=== PATIENT | male | born 1990 | race Caucasian/White ===

== ENCOUNTER 2016-03-24 12:51 | Emergency (ER) | payer OTHER ==
[~2016-03-24 12:51] MED LIST: BACT800T5 PO; HYDR-4274 PO; LATU1TAB PO; MIRT15TA3 PO; NORC5TAB PO; PERCOCET PO; REME15TA PO; VIST50CA PO
--- NOTE | 2016-03-24 14:40 | EDDOCDS ---
Nurse's Notes [facility] Name: Erik Fernandez Age: 26 yrs Sex: Male : 1990 Arrival Date: 03/24/2016 Time: 12:51 Bed TR5 Private MD: MDPhillip SCHULTZ Diagnosis: Postprocedural pelvic peritoneal adhesions Presentation: 03/24 13:01 Presenting complaint: Patient states: he has had right lower abdominal pain for 2 weeks kcs - getting worse - thinks there may be a lump there. Adult Sepsis Screening: The patient does not have new or worsening altered mentation. Patient's respiratory rate is less than 22. Systolic blood pressure is greater than 100. Patient has a qSOFA score of 0- Negative Sepsis Screen. Suicide/Homicide risk assessment- the patient denies having any suicidal and/or homicidal ideations and does not present with any other emotional, behavioral or mental health complaints. 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 Transition of care: patient was not received from another setting of care. 13:01 Acuity: BRIANNA Level 3 kcs 13:01 Method Of Arrival: Walkin/Carried/Asstd kcs Triage Assessment: 13:02 General: Appears comfortable, well developed, well nourished, well groomed, Behavior is kcs cooperative, pleasant. Pain: Location: RLQ abdomen Pain currently is 5 out of 10 on a pain scale. HIV screening NA for this visit active duty . Neurological: Level of Consciousness is awake, alert. Respiratory: Airway is patent Respiratory effort is even, unlabored, Respiratory pattern is regular, symmetrical. GI: Reports nausea, Denies diarrhea, vomiting. Derm: Skin is intact, is healthy with good turgor, Skin is dry, Skin is normal. Historical: - Allergies: No known drug Allergies; - Home Meds: 1. Zomig 5 mg oral tab 1 tab as needed for pain 2. paroxetine HCl 10 mg Oral tab 1 tab once daily at dinner time (Last dose: 03/23/2016) 3. prazosin 1 mg Oral cap 1 cap daily at bedtime. - PMHx: hernias; hydrocele; Hypertension; wisdom teeth; - PSHx: Hernia repair- Right inguinal; [place] Teeth; - Social history: Smoking status: Patient states former smoker of tobacco. No barriers to communication noted, The patient speaks fluent Montenegrin. - Family history: Not pertinent. - : The pt / caregiver states he / she is not on anticoagulants. Home medication list is obtained from the patient, [employer] import data. - Exposure Risk Screening:: None identified. Screenin:31 Screening information is obtained from the patient. Fall risk: No risks identified. bcj Assistance ADL's: requires no assistance with activities of daily living. Abuse/DV Screen: The patient / caregiver reports he/she is: not in a situation that causes fear, pain or injury. Nutritional screening: No deficits noted. Advance Directives: Currently, there is no health care proxy. home support is adequate. Assessment: 14:31 GI: Bowel sounds present X 4 quads. Abd is soft and non tender X 4 quads. j Vital Signs: 12:54 BP 135 / 69; Pulse 76; Resp 18 S; Temp 97.0(O); Pulse Ox 100% on R/A; Weight 65.77 kg gr2 (R); Height 71 in. (180.34 cm) (R); Pain 8/10; 14:18 BP 137 / 76; Pulse 77; Resp 18; Temp 98.3(TE); Pulse Ox 99% on R/A; Pain 4/10; ar3 12:54 Body Mass Index 20.22 (65.77 kg, 180.34 cm) gr2 Vitals: 12:54 Log In Time: March 24, 2016 at 12:54. gr2 ED Course: 12:53 Patient visited by Nina Jang. gr2 12:53 [facility] is Private Physician. gr2 12:53 Patient moved to Waiting gr2 12:56 Patient visited by Nina Jang. gr2 12:56 Patient moved to Pre RCE gr2 13:01 Triage Initiated kcs 13:45 Patient moved to Triage 2 mb9 13:46 Patient moved to Pre RCE ar3 13:49 Patient moved to Triage 2 mb9 13:50 Erasmo Ramirez PA is PHCP. btw 13:50 Whit Huston MD is Attending Physician. btw 13:50 Patient visited by Erasmo Ramirez PA. btw 13:56 [facility] is Referral Physician. btw 14:18 Patient visited by Isabel Smith PCA. ar3 14:30 Patient moved to TR5 ar3 14:31 No apparent distress. Resting quietly. Awaiting disposition. [facility] 14:31 The patient / caregiver is instructed regarding the plan of care and ED course. [facility] 14:31 No IV's were initiated during this patient's visit. No procedures done that require bcj assistance. 14:33 Patient visited by Shaun Francois, JOVANY. j Order Results: There are currently no results for this order. Outcome: 13:57 Discharge ordered by Provider. [facility] 14:31 Discharge Assessment: patient administered narcotics - no. The following High Risk [facility] Discharge criteria are identified: None. Discharged to home ambulatory. Condition: stable. Discharge instructions given to patient, Instructed on discharge instructions, follow up and referral plans. No special radiology studies were completed. Property :Personal belongings accompany Pt. 14:39 Patient left the ED. [facility] Signatures: Johanna Del Rosario RN RN [facility] Shaun Francois, RN RN [facility] Isabel Smith PCA GAS MAIN FITTER HELPER ar3 Erasmo Ramirez PA PA bt Nina Jang 2 Denzel SantillanRN RN mb9 YARIEL
--- NOTE | 2016-03-24 14:40 | EDDOCDS ---
Physician Documentation [facility] Name: Erik Fernandez Age: 26 yrs Sex: Male : 1990 Arrival Date: 03/24/2016 Time: 12:51 Bed TR5 Private MD: [facility] [place] Disposition: 03/24/16 13:57 Discharged to Home/Self Care. Impression: Postprocedural pelvic peritoneal adhesions. - Condition is Stable. - Discharge Instructions: Adhesions. - Medication Reconciliation, Local Pharmacy Hours form. - Follow up: [facility]; When: 1 - 2 days; Reason: Further diagnostic work-up, Recheck today's complaints, Continuance of care. - Problem is new. - Symptoms are unchanged. Historical: - Allergies: No known drug Allergies; - Home Meds: 1. Zomig 5 mg oral tab 1 tab as needed for pain 2. paroxetine HCl 10 mg Oral tab 1 tab once daily at dinner time (Last dose: 03/23/2016) 3. prazosin 1 mg Oral cap 1 cap daily at bedtime. - PMHx: hernias; hydrocele; Hypertension; wisdom teeth; - PSHx: Hernia repair- Right inguinal; [place] Teeth; - Social history: Smoking status: Patient states former smoker of tobacco. No barriers to communication noted, The patient speaks fluent Ecuadorean. - Family history: Not pertinent. - : The pt / caregiver states he / she is not on anticoagulants. Home medication list is obtained from the patient, [employer] import data. - Exposure Risk Screening:: None identified. Vital Signs: 03/24 12:54 BP 135 / 69; Pulse 76; Resp 18 S; Temp 97.0(O); Pulse Ox 100% on R/A; Weight 65.77 kg / gr2 145 lbs (R); Height 71 in. (180.34 cm) (R); Pain 8/10; 14:18 BP 137 / 76; Pulse 77; Resp 18; Temp 98.3(TE); Pulse Ox 99% on R/A; Pain 4/10; ar3 12:54 Body Mass Index 20.22 (65.77 kg, 180.34 cm) gr2 Signatures: Johanna Del Rosario RN RN kcs Johnson, Bruce, RN RN bcj Wolfenden, Brandon, PA PA btw Denzel Santillan,RN RN mb9 MTDD
--- NOTE | 2016-03-26 15:39 | EDDOCDS ---
Physician Documentation [facility] Name: Erik Fernandez Age: 26 yrs Sex: Male : 1990 Arrival Date: 03/24/2016 Time: 12:51 Bed TR5 Private MD: [facility] [place] Disposition: 03/24/16 13:57 Discharged to Home/Self Care. Impression: Postprocedural pelvic peritoneal adhesions. - Condition is Stable. - Discharge Instructions: Adhesions. - Medication Reconciliation, Local Pharmacy Hours form. - Follow up: [facility]; When: 1 - 2 days; Reason: Further diagnostic work-up, Recheck today's complaints, Continuance of care. - Problem is new. - Symptoms are unchanged. Historical: - Allergies: No known drug Allergies; - Home Meds: 1. Zomig 5 mg oral tab 1 tab as needed for pain 2. paroxetine HCl 10 mg Oral tab 1 tab once daily at dinner time (Last dose: 03/23/2016) 3. prazosin 1 mg Oral cap 1 cap daily at bedtime. - PMHx: hernias; hydrocele; Hypertension; wisdom teeth; - PSHx: Hernia repair- Right inguinal; [place] Teeth; - Social history: Smoking status: Patient states former smoker of tobacco. No barriers to communication noted, The patient speaks fluent Botswanan. - Family history: Not pertinent. - : The pt / caregiver states he / she is not on anticoagulants. Home medication list is obtained from the patient, [employer] import data. - Exposure Risk Screening:: None identified. Vital Signs: 03/24 12:54 BP 135 / 69; Pulse 76; Resp 18 S; Temp 97.0(O); Pulse Ox 100% on R/A; Weight 65.77 kg / gr2 145 lbs (R); Height 71 in. (180.34 cm) (R); Pain 8/10; 14:18 BP 137 / 76; Pulse 77; Resp 18; Temp 98.3(TE); Pulse Ox 99% on R/A; Pain 4/10; ar3 12:54 Body Mass Index 20.22 (65.77 kg, 180.34 cm) gr2 MDM: 03/25 12:05 T-Sheet-- Draft Copy was scanned into [employer] and attached to record. gb Signatures: Johanna Del Rosario, RN RN Shaun Noonan RN RN bcj Iraida Moulton, Reg Reg gb Erasmo Ramirez PA PA btw Denzel SantillanRN RN mb9 The chart was reviewed and I authenticate all verbal orders and agree with the evaluation and treatment provided.Attachments: 12:05 T-Sheet-- Draft Copy gb Chart Complete MTDD
--- NOTE | 2016-03-26 15:39 | EDDOCDS ---
Physician Documentation [facility] Name: Erik Fernandez Age: 26 yrs Sex: Male : 1990 Arrival Date: 03/24/2016 Time: 12:51 Bed TR5 Private MD: [facility] [place] Disposition: 03/24/16 13:57 Discharged to Home/Self Care. Impression: Postprocedural pelvic peritoneal adhesions. - Condition is Stable. - Discharge Instructions: Adhesions. - Medication Reconciliation, Local Pharmacy Hours form. - Follow up: [facility]; When: 1 - 2 days; Reason: Further diagnostic work-up, Recheck today's complaints, Continuance of care. - Problem is new. - Symptoms are unchanged. Historical: - Allergies: No known drug Allergies; - Home Meds: 1. Zomig 5 mg oral tab 1 tab as needed for pain 2. paroxetine HCl 10 mg Oral tab 1 tab once daily at dinner time (Last dose: 03/23/2016) 3. prazosin 1 mg Oral cap 1 cap daily at bedtime. - PMHx: hernias; hydrocele; Hypertension; wisdom teeth; - PSHx: Hernia repair- Right inguinal; [place] Teeth; - Social history: Smoking status: Patient states former smoker of tobacco. No barriers to communication noted, The patient speaks fluent Gambian. - Family history: Not pertinent. - : The pt / caregiver states he / she is not on anticoagulants. Home medication list is obtained from the patient, [employer] import data. - Exposure Risk Screening:: None identified. Vital Signs: 03/24 12:54 BP 135 / 69; Pulse 76; Resp 18 S; Temp 97.0(O); Pulse Ox 100% on R/A; Weight 65.77 kg / gr2 145 lbs (R); Height 71 in. (180.34 cm) (R); Pain 8/10; 14:18 BP 137 / 76; Pulse 77; Resp 18; Temp 98.3(TE); Pulse Ox 99% on R/A; Pain 4/10; ar3 12:54 Body Mass Index 20.22 (65.77 kg, 180.34 cm) gr2 MDM: 03/25 12:05 T-Sheet-- Draft Copy was scanned into [employer] and attached to record. gb Signatures: Johanna Del Rosario, RN RN Shaun Noonan RN RN bcj Iraida Moulton, Reg Reg gb Erasmo Ramirez PA PA btw Denzel SantillanRN RN mb9 The chart was reviewed and I authenticate all verbal orders and agree with the evaluation and treatment provided.Attachments: 12:05 T-Sheet-- Draft Copy gb Chart Complete MTDD
--- NOTE | 2016-03-26 15:39 | EDDOCDS ---
Nurse's Notes [facility] Name: Erik Fernandez Age: 26 yrs Sex: Male : 1990 Arrival Date: 03/24/2016 Time: 12:51 Bed TR5 Private MD: NJPhillip SCHULTZ Diagnosis: Postprocedural pelvic peritoneal adhesions Presentation: 03/24 13:01 Presenting complaint: Patient states: he has had right lower abdominal pain for 2 weeks kcs - getting worse - thinks there may be a lump there. Adult Sepsis Screening: The patient does not have new or worsening altered mentation. Patient's respiratory rate is less than 22. Systolic blood pressure is greater than 100. Patient has a qSOFA score of 0- Negative Sepsis Screen. Suicide/Homicide risk assessment- the patient denies having any suicidal and/or homicidal ideations and does not present with any other emotional, behavioral or mental health complaints. 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 Transition of care: patient was not received from another setting of care. 13:01 Acuity: BRIANNA Level 3 kcs 13:01 Method Of Arrival: Walkin/Carried/Asstd kcs Triage Assessment: 13:02 General: Appears comfortable, well developed, well nourished, well groomed, Behavior is kcs cooperative, pleasant. Pain: Location: RLQ abdomen Pain currently is 5 out of 10 on a pain scale. HIV screening NA for this visit active duty . Neurological: Level of Consciousness is awake, alert. Respiratory: Airway is patent Respiratory effort is even, unlabored, Respiratory pattern is regular, symmetrical. GI: Reports nausea, Denies diarrhea, vomiting. Derm: Skin is intact, is healthy with good turgor, Skin is dry, Skin is normal. Historical: - Allergies: No known drug Allergies; - Home Meds: 1. Zomig 5 mg oral tab 1 tab as needed for pain 2. paroxetine HCl 10 mg Oral tab 1 tab once daily at dinner time (Last dose: 03/23/2016) 3. prazosin 1 mg Oral cap 1 cap daily at bedtime. - PMHx: hernias; hydrocele; Hypertension; wisdom teeth; - PSHx: Hernia repair- Right inguinal; [place] Teeth; - Social history: Smoking status: Patient states former smoker of tobacco. No barriers to communication noted, The patient speaks fluent Norwegian. - Family history: Not pertinent. - : The pt / caregiver states he / she is not on anticoagulants. Home medication list is obtained from the patient, [employer] import data. - Exposure Risk Screening:: None identified. Screenin:31 Screening information is obtained from the patient. Fall risk: No risks identified. bcj Assistance ADL's: requires no assistance with activities of daily living. Abuse/DV Screen: The patient / caregiver reports he/she is: not in a situation that causes fear, pain or injury. Nutritional screening: No deficits noted. Advance Directives: Currently, there is no health care proxy. home support is adequate. Assessment: 14:31 GI: Bowel sounds present X 4 quads. Abd is soft and non tender X 4 quads. j Vital Signs: 12:54 BP 135 / 69; Pulse 76; Resp 18 S; Temp 97.0(O); Pulse Ox 100% on R/A; Weight 65.77 kg gr2 (R); Height 71 in. (180.34 cm) (R); Pain 8/10; 14:18 BP 137 / 76; Pulse 77; Resp 18; Temp 98.3(TE); Pulse Ox 99% on R/A; Pain 4/10; ar3 12:54 Body Mass Index 20.22 (65.77 kg, 180.34 cm) gr2 Vitals: 12:54 Log In Time: March 24, 2016 at 12:54. gr2 ED Course: 12:53 Patient visited by Nina Jang. gr2 12:53 [facility] is Private Physician. gr2 12:53 Patient moved to Waiting gr2 12:56 Patient visited by Nina Jang. gr2 12:56 Patient moved to Pre RCE gr2 13:01 Triage Initiated kcs 13:45 Patient moved to Triage 2 mb9 13:46 Patient moved to Pre RCE ar3 13:49 Patient moved to Triage 2 mb9 13:50 Erasmo Ramirez PA is PHCP. btw 13:50 Whit Huston MD is Attending Physician. btw 13:50 Patient visited by Erasmo Ramirez PA. btw 13:56 [facility] is Referral Physician. btw 14:18 Patient visited by Isabel Smith PCA. ar3 14:30 Patient moved to TR5 ar3 14:31 No apparent distress. Resting quietly. Awaiting disposition. [facility] 14:31 The patient / caregiver is instructed regarding the plan of care and ED course. [facility] 14:31 No IV's were initiated during this patient's visit. No procedures done that require bcj assistance. 14:33 Patient visited by Shaun Francois, RN. [facility] 03/25 12:05 T-Sheet-- Draft Copy was scanned into [employer] and attached to record. Order Results: There are currently no results for this order. Outcome: 03/24 13:57 Discharge ordered by Provider. [facility] 14:31 Discharge Assessment: patient administered narcotics - no. The following High Risk [facility] Discharge criteria are identified: None. Discharged to home ambulatory. Condition: stable. Discharge instructions given to patient, Instructed on discharge instructions, follow up and referral plans. No special radiology studies were completed. Property :Personal belongings accompany Pt. 14:39 Patient left the ED. [facility] Signatures: Johanna Del Rosario, JOVANY RN [facility] Shaun Francois, RN RN [facility] Iraida Moulton, Reg Reg gb Isabel Smith, MOBILE APPLICATION ENGINEER MOBILE APPLICATION ENGINEER ar3 Erasmo Ramirez PA PA w Nina Jang gr2 Denzel Santillan,RN RN mb9 Chart Complete MTDD
== END 2016-03-24 14:39 | disposition home or self-care (01) ==
LOC: M ED 12:51
DX: N99.4 Postprocedural pelvic peritoneal adhesions (principal); N43.3 Hydrocele, unspecified; I10 Essential (primary) hypertension; K46.9 Unspecified abdominal hernia without obstruction or gangrene; Z87.891 Personal history of nicotine dependence; Z79.899 Other long term (current) drug therapy

== ENCOUNTER 2016-05-11 22:11 | Emergency (ER) | payer OTHER ==
[2016-05-11 23:49] LABS: MEAN CORPUSCULAR HEMOGLOBIN 29.7 pg (27.0-33.0); MEAN CORPUSCULAR HGB CONC 34.1 g/dl (32.0-36.5); MEAN CORPUSCULAR VOLUME 87.1 fl (80.0-96.0); RED CELL DISTRIBUTION WIDTH 12.6 % (11.5-14.5); WHITE BLOOD COUNT 9.4 K/mm3 (4.0-10.0)
[2016-05-12 00:22] LABS: ALBUMIN/GLOBULIN RATIO 1.39 (1.00-1.93); ALKALINE PHOSPHATASE 83 U/L (45-117); ALT/SGPT 12 U/L (12-78); ANION GAP 10 MEQ/L (8-16); AST/SGOT 12 U/L (15-37); BILIRUBIN,DIRECT 0.3 MG/DL (0.0-0.2); BILIRUBIN,TOTAL 1.2 MG/DL (0.2-1.0); BLOOD UREA NITROGEN 15 MG/DL (7-18); CALCIUM LEVEL 9.3 MG/DL (8.5-10.1); CARBON DIOXIDE LEVEL 25 MEQ/L (21-32); CHLORIDE LEVEL 105 MEQ/L (98-107); CREATININE FOR GFR 1.08 MG/DL (0.70-1.30); GLOMERULAR FILTRATION RATE > 60.0 (>60); GLUCOSE, FASTING 111 MG/DL (70-105); POTASSIUM SERUM 4.1 MEQ/L (3.5-5.1); SODIUM LEVEL 140 MEQ/L (136-145); TOTAL PROTEIN 8.6 GM/DL (6.4-8.2)
[2016-05-12 00:25] LABS: AMPHETAMINES LEVEL URINE POSITIVE (NEGATIVE); BENZODIAZEPINES URINE NEGATIVE (NEGATIVE); COCAINE METABOLITE URINE NEGATIVE (NEGATIVE); CONTROL LINE INT CTR LINE PRESENT; METHADONE URINE NEGATIVE (NEGATIVE); OPIATES URINE POSITIVE (NEGATIVE); TRICYCLIC ANTIDEPRESS URINE NEGATIVE (NEGATIVE)
--- NOTE | 2016-05-12 01:36 | EDDOCDS ---
Nurse's Notes [facility] Name: Erik Fernandez Age: 26 yrs Sex: Male : 1990 Arrival Date: 05/11/2016 Time: 22:11 Bed [facility] Private MD: Diagnosis: Other stimulant abuse-methamphetamine Presentation: 05/11 22:42 Presenting complaint: Patient states: pt reports history of drug addiction in the past, sls1 reports he " relapsed today took what he believed was an upper" states " he wants helps but does not feel good about it but may in a few days". Reports etoh use today. Denies SI or HI. Mental Health Triage Level: Level 1- Pt displays no suicidal or homicidal ideations and does not appear to be a danger to self or others. Adult Sepsis Screening: The patient does not have new or worsening altered mentation. Patient's respiratory rate is less than 22. Systolic blood pressure is greater than 100. Patient has a qSOFA score of 0- Negative Sepsis Screen. Suicide/Homicide risk assessment- The patient reports that he/she has not been admitted to an inpatient mental health facility in the last 30 days. The patient reports that he/she has a recent or current history of substance abuse. The patient reports that he/she has no prior history of suicide attempt and/or organized plan. The patient reports that he/she has not experienced a significant life altering event in the last 30 days. The patient reports that he/she has adequate social support. 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 Transition of care: patient was not received from another setting of care. 22:42 Acuity: BRIANNA Level 3 sls1 22:42 Method Of Arrival: Walkin/Carried/Asstd sls1 Triage Assessment: 22:44 General: Appears in no apparent distress, Behavior is appropriate for age, restless. sls1 Pain: Denies pain. Pt Declines HIV testing. The patient is triaged at the bedside. See Assessment in Nurses Notes section of ED record. Neurological: Level of Consciousness is awake, alert. Respiratory: Airway is patent Respiratory effort is even, unlabored, Respiratory pattern is regular, symmetrical. Derm: No deficits noted. Historical: - Allergies: no known allergies; - Home Meds: 1. none - PMHx: hernias; hydrocele; Hypertension; wisdom teeth; - PSHx: Hernia repair- Right inguinal; [place] Teeth; - Social history: Smoking status: Patient uses tobacco products, current every day smoker. Patient uses alcohol street drugs, No barriers to communication noted, The patient speaks fluent Surinamese. - Family history: Not pertinent. - : The pt / caregiver states he / she is not on anticoagulants. Home medication list is obtained from the patient. - Exposure Risk Screening:: None identified. Screenin/21 00:11 Screening information is obtained from the patient. Fall risk: No risks identified. slm Assistance ADL's: requires no assistance with activities of daily living. Abuse/DV Screen: The patient / caregiver reports he/she is: not in a situation that causes fear, pain or injury. Nutritional screening: No deficits noted. Advance Directives: Currently, there is no health care proxy. There is no active DNR order. There is no living will. There is no Power of Switchboard Operator Helper. Advance directive information has not previously been placed in an [facility] medical record. Further advance directive information is declined. 01:35 home support is adequate. slm Assessment: 05/11 22:45 General: Appears in no apparent distress, Behavior is appropriate for age, cooperative, sls1 See triage assessment. 23:29 General: Appears in no apparent distress, comfortable, Behavior is appropriate for age, slm cooperative, pleasant. Neurological: Level of Consciousness is awake, alert, obeys commands. Respiratory: Airway is patent Respiratory effort is even, unlabored. Derm: Skin is pink, warm & dry. 23:48 General: Appears in no apparent distress, comfortable, Behavior is appropriate for age, slm pleasant. General: security observing. Respiratory: No deficits noted. 05/12 00:11 General: Appears in no apparent distress, comfortable, Behavior is appropriate for age, slm cooperative, pleasant. General: pt sitting on stretcher security observing . Respiratory: Airway is patent Respiratory effort is even, unlabored. 01:14 General: Appears in no apparent distress, comfortable, Behavior is cooperative, mv5 pleasant. Neurological: Level of Consciousness is awake, alert, Oriented to person, place, time. Respiratory: Airway is patent Respiratory effort is even, unlabored. Derm: Skin is pink, warm & dry. 01:33 General: Appears in no apparent distress, comfortable, Behavior is appropriate for age, slm cooperative, pleasant. General: pt d/c home . Pain: Denies pain. Neurological: Level of Consciousness is awake, alert, obeys commands, Oriented to person, place, time. Respiratory: No deficits noted. Derm: Skin is pink, warm & dry. 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 Referral Information: cl Evaluation referral is generated by Phillip AHUJA. The patient was referred for evaluation because Pt with recent drug use?..brought to ED by [facility], pt denies SI/HI on arrival.. 23:51 [facility] Behavioral Health: The patient is not an established patient of [facility] Behavioral Health. Subjective: The patients chief complaint is Pt reports his [facility] brought him to ED after they found out that he had been using drugs for past several days, pt admits to "relapse" on heroin, states he has been using it since this past weekend. Pt denies SI/HI, denies AH/VH, has hx of depression and substance abuse, 1 prior psych admission to [facility] in past when he took mild OD in reaction to breakup with GF. Pt states he has been doing well, still feels "some depression, but a lot better than it used to be", continues to deny SI/HI, states he wants "help" with his drug issues.. Delusions are denied. Patient's mood is anxious, Hallucinations are denied. Mental Health history: depression, abusing heroin. suicide gesture by via OD Mental Health Admissions: [facility] 2014...depression/SI. Current Outpatient Mental Health Services: None. Current living environment is The patient currently lives in a [facility]. The patient is single. Patient presents to Emergency Department with the following symptoms within the past 2 weeks: depressed mood, drug abuse. Substance abuse: Patient uses heroin Last use was 13 hours ago. unidentified "upper" that pt. took earlier.... Mental status exam: Patients appearance is appropriate, Patient's behavior is cooperative, Speech is normal. Affect is appropriate. Mood is anxious. Hallucinations are denied. Appetite is normal. Memory is fair. Energy level is normal. Content of thought is normal. Thought process is intact. Cognitive level is oriented to person, place, time and situation Patient's insight is fair. Judgement is fair. Rapport with interviewer is guarded. Suicidal Ideation is denied. Homicidal ideation is denied. 05/12 00:32 Disposition: Medically cleared for disposition by Christos Storey MD Psychiatric Consult cl is deferred per ED physician, Dr Storey. 00:53 Disposition: The patient has a safe destination which is back to [place] with [facility], pt cl denies SI/HI, will f/u at [facility] in the morning per protocol... [facility] Admission Criteria: Not Applicable. [place] Safe [place]: [place] is not applicable because the patient does not display any suicidal or homicidal ideations and does not pose a risk to self or others. DSM-V Differential Diagnosis: Opioid Use Disorder. Insurance Pre-Certification: Not Required. Vital Signs: 05/11 22:26 BP 154 / 101; Pulse 124; Resp 20; Temp 98.4(T); Pulse Ox 98% on R/A; Height 5 ft. 10 slm in. (177.80 cm); Pain 5/10; 23:29 BP 148 / 101; Pulse 122; Resp 18; Pulse Ox 100% on R/A; slm 23:37 BP 140 / 90; slm 05/12 01:28 BP 132 / 90; Pulse 110; Resp 18; Temp 97.8(T); Pulse Ox 100% ; Pain 3/10; mas Vitals: 05/11 22:26 Log In Time: May 11, 2016 at 22:26. [facility] ED Course: 22:13 Patient visited by Ash Love PCA. kb5 22:13 Patient moved to [place] [id number] 22:16 Patient moved to [address] 22:20 Lexi Vargas LPN is Primary Nurse. slm 22:32 The patient / caregiver is instructed regarding the plan of care and ED course. Patient slm has correct armband on for positive identification. Bed in low position. Call light in reach. Security observing. Property removed, inventory done, secured in belongings bag- placed in locked locker. 22:32 No IV's were initiated during this patient's visit. No procedures done that require slm assistance. 22:39 Patient visited by Hipolito Purcell. [facility] 22:39 Pt greeted and oriented to ED. Patient advised of names of staff involved in care, [facility] location of call [place], wait times and NPO status. Accompanied by escort, Placed in psych safe attire. Bed in low position. Call light in reach. Side rails up X 1. Security observing. Property removed, inventory done, secured in belongings bag- Placed in locker 3. Door closed. Noise minimized. Moved to private room. Verbal reassurance given. Warm blanket given. Pillow given. Psych Safety Check: Location: Psych Room. Visual Assessment: cooperative \\T\\ this time. 22:43 Triage Initiated sls1 22:45 Patient visited by Hipolito Purcell. mas 22:46 Patient visited by Kristie Lujan RN. sls1 23:00 Patient visited by Hipolito Purcell. mas 23:11 Christos Storey MD is Attending Physician. br1 23:20 Patient visited by Christos Storey MD. br1 23:30 Patient visited by Lexi Vargas LPN. slm 23:42 Patient visited by Hipolito Purcell. mas 23:47 Labs drawn. (by ED staff). Sent per order to lab. slm 23:47 Acetaminophen Level Sent. slm 23:47 Basic Metabolic Profile Sent. slm 23:47 Complete Blood Count Sent. slm 23:47 Ethyl Alcohol (ethanol) Sent. slm 23:47 Liver Profile Sent. slm 23:47 Salicylate Level Sent. slm 23:47 Thyroid Stimulating Hormone Sent. slm 23:48 Patient visited by Lexi Vargas LPN. slm 02 00:11 Patient visited by Lexi Vargas LPN. slm 00:31 Patient visited by Hipolito Purcell. mas 00:34 Attending Physician role handed off by Christos Storey MD mm11 00:34 Isaias Ralph DO is Attending Physician. mm11 00:50 Patient visited by Hipolito Purcell. mas 01:00 Patient visited by Hipolito Purcell. mas 01:16 Patient visited by Hipolito Purcell. mas 01:27 Phillip Yang [facility] is Referral Physician. mm11 01:30 Patient visited by Hipolito Purcell. mas 01:35 Patient visited by Lexi Vargas LPN. slm Order Results: Lab Order: Acetaminophen Level; SPEC'M 05/11/16 23:41 Test: ACETAMINOPHEN LEVEL; Value: < 2.0; Range: 10.0-30.0; Abnormal: Below low normal; Units: UG/ML; Status: F Lab Order: Basic Metabolic Profile; [facility]05/11/16 23:41 Test: GLUCOSE, FASTING; Value: 111; Range: 70-105; Abnormal: Above high normal; Units: MG/DL; Status: F Test: BLOOD UREA NITROGEN; Value: 15; Range: 7-18; Units: MG/DL; Status: F Test: CREATININE FOR GFR; Value: 1.08; Range: 0.70-1.30; Units: MG/DL; Status: F Test: GLOMERULAR FILTRATION RATE; Value: > 60.0; Range: >60; Status: F Test: SODIUM LEVEL; Value: 140; Range: 136-145; Units: MEQ/L; Status: F Test: POTASSIUM SERUM; Value: 4.1; Range: 3.5-5.1; Units: MEQ/L; Status: F Test: CHLORIDE LEVEL; Value: 105; Range: 98-107; Units: MEQ/L; Status: F Test: CARBON DIOXIDE LEVEL; Value: 25; Range: 21-32; Units: MEQ/L; Status: F Test: ANION GAP; Value: 10; Range: 8-16; Units: MEQ/L; Status: F Test: CALCIUM LEVEL; Value: 9.3; Range: 8.5-10.1; Units: MG/DL; Status: F Test Note: ; Units are mL/min/1.73 m2 Chronic Kidney Disease Staging per NKF: Stage I & II GFR >=60 Normal to Mildly Decreased Stage III GFR 30-59 Moderately Decreased Stage IV GFR 15-29 Severely Decreased Stage V GFR <15 Very Little GFR Left ESRD GFR <15 on LENS CLEANER Lab Order: Complete Blood Count; [facility]05/11/16 23:41 Test: WHITE BLOOD COUNT; Value: 9.4; Range: 4.0-10.0; Units: K/mm3; Status: F Test: RED BLOOD COUNT; Value: 5.65; Range: 4.30-6.10; Units: M/mm3; Status: F Test: HEMOGLOBIN; Value: 16.8; Range: 14.0-18.0; Units: g/dl; Status: F Test: HEMATOCRIT; Value: 49.2; Range: 42.0-52.0; Units: %; Status: F Test: MEAN CORPUSCULAR VOLUME; Value: 87.1; Range: 80.0-96.0; Units: fl; Status: F Test: MEAN CORPUSCULAR HEMOGLOBIN; Value: 29.7; Range: 27.0-33.0; Units: pg; Status: F Test: MEAN CORPUSCULAR HGB CONC; Value: 34.1; Range: 32.0-36.5; Units: g/dl; Status: F Test: RED CELL DISTRIBUTION WIDTH; Value: 12.6; Range: 11.5-14.5; Units: %; Status: F Test: PLATELET COUNT, AUTOMATED; Value: 260; Range: 150-450; Units: k/mm3; Status: F Lab Order: Drug Eval Toxicology ED Only; SPEC'M 05/11/16 23:50 Test: AMPHETAMINES LEVEL URINE; Value: POSITIVE; Range: NEGATIVE; Abnormal: Above high normal; Status: F Test: BARBITURATES URINE; Value: NEGATIVE; Range: NEGATIVE; Status: F Test: BENZODIAZEPINES URINE; Value: NEGATIVE; Range: NEGATIVE; Status: F Test: CANNABINOIDS URINE; Value: NEGATIVE; Range: NEGATIVE; Status: F Test: COCAINE METABOLITE URINE; Value: NEGATIVE; Range: NEGATIVE; Status: F Test: METHADONE URINE; Value: NEGATIVE; Range: NEGATIVE; Status: F Test: OPIATES URINE; Value: POSITIVE; Range: NEGATIVE; Abnormal: Above high normal; Status: F Test: TRICYCLIC ANTIDEPRESS URINE; Value: NEGATIVE; Range: NEGATIVE; Status: F Test Note: ; ALL PRESUMPTIVE POSITIVE FINDINGS ARE UNCONFIRMED NORMAL VALUES THRESHOLD IN NG/ML AMPHETAMINES 1000 METHAMPHETAMINES 1000 BARBITURATES 300 BENZODIAZEPINES 300 CANNABINOIDS (THC) 50 COCAINE METABOLITE 300 METHADONE 300 OPIATES 300 PHENCYCLIDINE 25 TRICYCLIC ANTIDEPRESSANTS 1000 RESULTS ARE FOR MEDICAL PURPOSES ONLY. ALL URINE SPECIMENS WILL BE SAVED FOR 3 DAYS. IF CONFIRMATION OF A PRESUMPTIVE POSTIVE SCREEN RESULT IS DESIRED, CALL CHEMISTRY ([phone]) AND REQUEST URINE TO BE SENT TO REFERENCE LAB. FOR A LIST OF CLOSELY RELATED COMPOUNDS PLEASE CALL THE LAB. Lab Order: Ethyl Alcohol (ethanol); SPEC'M 05/11/16 23:41 Test: ETHYL ALCOHOL (ETHANOL); Value: < 0.003; Range: 0.000-0.010; Units: %; Status: F Lab Order: Liver Profile; [facility]' 05/11/16 23:41 Test: AST/SGOT; Value: 12; Range: 15-37; Abnormal: Below low normal; Units: U/L; Status: F Test: ALT/SGPT; Value: 12; Range: 12-78; Units: U/L; Status: F Test: ALKALINE PHOSPHATASE; Value: 83; Range: 45-117; Units: U/L; Status: F Test: BILIRUBIN,TOTAL; Value: 1.2; Range: 0.2-1.0; Abnormal: Above high normal; Units: MG/DL; Status: F Test: BILIRUBIN,DIRECT; Value: 0.3; Range: 0.0-0.2; Abnormal: Above high normal; Units: MG/DL; Status: F Test: TOTAL PROTEIN; Value: 8.6; Range: 6.4-8.2; Abnormal: Above high normal; Units: GM/DL; Status: F Test: ALBUMIN; Value: 5.0; Range: 3.2-5.2; Units: GM/DL; Status: F Test: ALBUMIN/GLOBULIN RATIO; Value: 1.39; Range: 1.00-1.93; Status: F Lab Order: Salicylate Level; [facility]' 05/11/16 23:41 Test: SALICYLATE LEVEL; Value: < 1.7; Range: 5.0-30.0; Abnormal: Below low normal; Units: MG/DL; Status: F Lab Order: Thyroid Stimulating Hormone; [facility] 05/11/16 23:41 Test: THYROID STIMULATING HORMONE; Value: 1.580; Range: 0.358-3.740; Units: uIU/ML; Status: F Outcome: 01:27 Discharge ordered by Provider. mm11 01:34 Discharge Assessment: Patient awake, alert and oriented x 3. No cognitive and/or slm functional deficits noted. Patient verbalized understanding of disposition instructions. patient administered narcotics - no. The following High Risk Discharge criteria are identified: Yes, pt seen by md and PSA . Discharged to home ambulatory. Condition: stable. Discharge instructions given to patient, Instructed on discharge instructions, follow up and referral plans. Demonstrated understanding of instructions, Pt was receptive of discharge instructions/ teaching. No special radiology studies were completed. 01:35 Patient left the ED. [facility] Signatures: Enrique Moya, PSA PSA cl Ash Love, DIRECTOR [employer] DIRECTOR [employer] kb5 Isaias Ralph, DO mm11 Christos Storey MD MD br1 Hipolito Purcell Shannon, RN RN sls1 Eduardo BurgosRN RN shob Lexi Vargas LPN PRECIPITATOR OPERATOR Jeannette Ferrara,RN RN mv5 MTDD
--- NOTE | 2016-05-12 01:36 | EDDOCDS ---
Physician Documentation [facility] Name: Erik Fernandez Age: 26 yrs Sex: Male : 1990 Arrival Date: 05/11/2016 Time: 22:11 Bed [facility] Private MD: Disposition: 05/12/16 01:27 Discharged to Home/Self Care. Impression: Other stimulant abuse - methamphetamine. - Condition is Stable. - Discharge Instructions: Stimulant Use Disorder-Methamphetamines. - Medication Reconciliation, Local Pharmacy Hours form. - Follow up: Phillip Yang, Behavioral Health; When: Today; Reason: Continuance of care. - Problem is an acute exacerbation. - Symptoms have improved. Historical: - Allergies: no known allergies; - Home Meds: 1. none - PMHx: hernias; hydrocele; Hypertension; wisdom teeth; - PSHx: Hernia repair- Right inguinal; [place] Teeth; - Social history: Smoking status: Patient uses tobacco products, current every day smoker. Patient uses alcohol street drugs, No barriers to communication noted, The patient speaks fluent Marshallese. - Family history: Not pertinent. - : The pt / caregiver states he / she is not on anticoagulants. Home medication list is obtained from the patient. - Exposure Risk Screening:: None identified. Vital Signs: 05/11 22:26 BP 154 / 101; Pulse 124; Resp 20; Temp 98.4(T); Pulse Ox 98% on R/A; Height 5 ft. 10 slm in. (177.80 cm); Pain 5/10; 23:29 BP 148 / 101; Pulse 122; Resp 18; Pulse Ox 100% on R/A; slm 23:37 BP 140 / 90; slm 05/12 01:28 BP 132 / 90; Pulse 110; Resp 18; Temp 97.8(T); Pulse Ox 100% ; Pain 3/10; mas MDM: 05/11 23:21 Consult PFS/PSA/Rubber Compounder ordered. br1 23:21 PSA/PFS to call Nursing Executive Secretary Social Welfare, to enter patient data on [place] Safe [place] if patient br1 involuntarily admitted or transferred for SI or HI ordered. 23:21 Confirm accurate psychiatric medication list and times of last dosage ordered. br1 23:21 Recheck Vital Signs, perform reassessment and enter into [employer] ordered. br1 23:22 Acetaminophen Level Ordered. EDMS 23:22 Basic Metabolic Profile Ordered. EDMS 23:22 Complete Blood Count Ordered. EDMS 23:22 Drug Eval Toxicology ED Only Ordered. EDMS 23:22 Ethyl Alcohol (ethanol) Ordered. EDMS 23:22 Liver Profile Ordered. EDMS 23:22 Salicylate Level Ordered. EDMS 23:22 Thyroid Stimulating Hormone Ordered. EDMS 23:32 Misc. Nursing Order ordered. br1 05/12 00:16 Consult PFS/PSA/Rubber Compounder complete. cl 00:16 PSA/PFS to call Nursing Executive Secretary Social Welfare, to enter patient data [place] Safe [place] if patient cl involuntarily admitted or transferred for SI or HI complete. 00:51 Acetaminophen Level Reviewed. mm11 00:51 Basic Metabolic Profile Reviewed. mm11 00:51 Drug Eval Toxicology ED Only Reviewed. mm11 00:51 Liver Profile Reviewed. mm11 00:51 Salicylate Level Reviewed. mm11 00:51 Complete Blood Count Reviewed. mm11 00:51 Ethyl Alcohol (ethanol) Reviewed. mm11 00:51 Thyroid Stimulating Hormone Reviewed. mm11 01:34 Financial registration complete. [facility] Signatures: Dispatcher [employer] EDMS Enrique Moya, PSA PSA cl Isaias Ralph, DO DO mm11 Christos Storey MD MD br1 Kristie Lujan RN RN sls1 Lexi Vargas LPN LPN slm [place], Sandra [facility] MTDD
--- NOTE | 2016-05-14 02:36 | EDDOCDS ---
Nurse's Notes [facility] Name: Erik Fernandez Age: 26 yrs Sex: Male : 1990 Arrival Date: 05/11/2016 Time: 22:11 Bed [facility] Private MD: Diagnosis: Other stimulant abuse-methamphetamine Presentation: 05/11 22:42 Presenting complaint: Patient states: pt reports history of drug addiction in the past, sls1 reports he " relapsed today took what he believed was an upper" states " he wants helps but does not feel good about it but may in a few days". Reports etoh use today. Denies SI or HI. Mental Health Triage Level: Level 1- Pt displays no suicidal or homicidal ideations and does not appear to be a danger to self or others. Adult Sepsis Screening: The patient does not have new or worsening altered mentation. Patient's respiratory rate is less than 22. Systolic blood pressure is greater than 100. Patient has a qSOFA score of 0- Negative Sepsis Screen. Suicide/Homicide risk assessment- The patient reports that he/she has not been admitted to an inpatient mental health facility in the last 30 days. The patient reports that he/she has a recent or current history of substance abuse. The patient reports that he/she has no prior history of suicide attempt and/or organized plan. The patient reports that he/she has not experienced a significant life altering event in the last 30 days. The patient reports that he/she has adequate social support. 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 Transition of care: patient was not received from another setting of care. 22:42 Acuity: BRIANNA Level 3 sls1 22:42 Method Of Arrival: Walkin/Carried/Asstd sls1 Triage Assessment: 22:44 General: Appears in no apparent distress, Behavior is appropriate for age, restless. sls1 Pain: Denies pain. Pt Declines HIV testing. The patient is triaged at the bedside. See Assessment in Nurses Notes section of ED record. Neurological: Level of Consciousness is awake, alert. Respiratory: Airway is patent Respiratory effort is even, unlabored, Respiratory pattern is regular, symmetrical. Derm: No deficits noted. Historical: - Allergies: no known allergies; - Home Meds: 1. none - PMHx: hernias; hydrocele; Hypertension; wisdom teeth; - PSHx: Hernia repair- Right inguinal; [place] Teeth; - Social history: Smoking status: Patient uses tobacco products, current every day smoker. Patient uses alcohol street drugs, No barriers to communication noted, The patient speaks fluent Australian. - Family history: Not pertinent. - : The pt / caregiver states he / she is not on anticoagulants. Home medication list is obtained from the patient. - Exposure Risk Screening:: None identified. Screenin/21 00:11 Screening information is obtained from the patient. Fall risk: No risks identified. slm Assistance ADL's: requires no assistance with activities of daily living. Abuse/DV Screen: The patient / caregiver reports he/she is: not in a situation that causes fear, pain or injury. Nutritional screening: No deficits noted. Advance Directives: Currently, there is no health care proxy. There is no active DNR order. There is no living will. There is no Power of Assembler Filters. Advance directive information has not previously been placed in an [facility] medical record. Further advance directive information is declined. 01:35 home support is adequate. slm Assessment: 05/11 22:45 General: Appears in no apparent distress, Behavior is appropriate for age, cooperative, sls1 See triage assessment. 23:29 General: Appears in no apparent distress, comfortable, Behavior is appropriate for age, slm cooperative, pleasant. Neurological: Level of Consciousness is awake, alert, obeys commands. Respiratory: Airway is patent Respiratory effort is even, unlabored. Derm: Skin is pink, warm & dry. 23:48 General: Appears in no apparent distress, comfortable, Behavior is appropriate for age, slm pleasant. General: security observing. Respiratory: No deficits noted. 05/12 00:11 General: Appears in no apparent distress, comfortable, Behavior is appropriate for age, slm cooperative, pleasant. General: pt sitting on stretcher security observing . Respiratory: Airway is patent Respiratory effort is even, unlabored. 01:14 General: Appears in no apparent distress, comfortable, Behavior is cooperative, mv5 pleasant. Neurological: Level of Consciousness is awake, alert, Oriented to person, place, time. Respiratory: Airway is patent Respiratory effort is even, unlabored. Derm: Skin is pink, warm & dry. 01:33 General: Appears in no apparent distress, comfortable, Behavior is appropriate for age, slm cooperative, pleasant. General: pt d/c home . Pain: Denies pain. Neurological: Level of Consciousness is awake, alert, obeys commands, Oriented to person, place, time. Respiratory: No deficits noted. Derm: Skin is pink, warm & dry. 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 Referral Information: cl Evaluation referral is generated by Phillip AHUJA. The patient was referred for evaluation because Pt with recent drug use?..brought to ED by [facility], pt denies SI/HI on arrival.. 23:51 [facility] Behavioral Health: The patient is not an established patient of [facility] Behavioral Health. Subjective: The patients chief complaint is Pt reports his [facility] brought him to ED after they found out that he had been using drugs for past several days, pt admits to "relapse" on heroin, states he has been using it since this past weekend. Pt denies SI/HI, denies AH/VH, has hx of depression and substance abuse, 1 prior psych admission to [facility] in past when he took mild OD in reaction to breakup with GF. Pt states he has been doing well, still feels "some depression, but a lot better than it used to be", continues to deny SI/HI, states he wants "help" with his drug issues.. Delusions are denied. Patient's mood is anxious, Hallucinations are denied. Mental Health history: depression, abusing heroin. suicide gesture by via OD Mental Health Admissions: [facility] 2014...depression/SI. Current Outpatient Mental Health Services: None. Current living environment is The patient currently lives in a [facility]. The patient is single. Patient presents to Emergency Department with the following symptoms within the past 2 weeks: depressed mood, drug abuse. Substance abuse: Patient uses heroin Last use was 13 hours ago. unidentified "upper" that pt. took earlier.... Mental status exam: Patients appearance is appropriate, Patient's behavior is cooperative, Speech is normal. Affect is appropriate. Mood is anxious. Hallucinations are denied. Appetite is normal. Memory is fair. Energy level is normal. Content of thought is normal. Thought process is intact. Cognitive level is oriented to person, place, time and situation Patient's insight is fair. Judgement is fair. Rapport with interviewer is guarded. Suicidal Ideation is denied. Homicidal ideation is denied. 05/12 00:32 Disposition: Medically cleared for disposition by Christos Storey MD Psychiatric Consult cl is deferred per ED physician, Dr Storey. 00:53 Disposition: The patient has a safe destination which is back to [place] with [facility], pt cl denies SI/HI, will f/u at [facility] in the morning per protocol... [facility] Admission Criteria: Not Applicable. [place] because the patient does not display any suicidal or homicidal ideations and does not pose a risk to self or others. DSM-V Differential Diagnosis: Opioid Use Disorder. Insurance Pre-Certification: Not Required. Vital Signs: 05/11 22:26 BP 154 / 101; Pulse 124; Resp 20; Temp 98.4(T); Pulse Ox 98% on R/A; Height 5 ft. 10 slm in. (177.80 cm); Pain 5/10; 23:29 BP 148 / 101; Pulse 122; Resp 18; Pulse Ox 100% on R/A; slm 23:37 BP 140 / 90; slm 05/12 01:28 BP 132 / 90; Pulse 110; Resp 18; Temp 97.8(T); Pulse Ox 100% ; Pain 3/10; mas Vitals: 05/11 22:26 Log In Time: May 11, 2016 at 22:26. [facility] ED Course: 22:13 Patient visited by Ash Love PCA. kb5 22:13 Patient moved to [place] [id number] 22:16 Patient moved to [address] 22:20 Lexi Vargas LPN is Primary Nurse. slm 22:32 The patient / caregiver is instructed regarding the plan of care and ED course. Patient slm has correct armband on for positive identification. Bed in low position. Call light in reach. Security observing. Property removed, inventory done, secured in belongings bag- placed in locked locker. 22:32 No IV's were initiated during this patient's visit. No procedures done that require slm assistance. 22:39 Patient visited by Hipolito Purcell. [facility] 22:39 Pt greeted and oriented to ED. Patient advised of names of staff involved in care, [facility] location of call [place], wait times and NPO status. Accompanied by escort, Placed in psych safe attire. Bed in low position. Call light in reach. Side rails up X 1. Security observing. Property removed, inventory done, secured in belongings bag- Placed in locker 3. Door closed. Noise minimized. Moved to private room. Verbal reassurance given. Warm blanket given. Pillow given. Psych Safety Check: Location: Psych Room. Visual Assessment: cooperative \\T\\ this time. 22:43 Triage Initiated sls1 22:45 Patient visited by Hipolito Purcell. mas 22:46 Patient visited by Kristie Lujan RN. sls1 23:00 Patient visited by Hipolito Purcell. mas 23:11 Christos Storey MD is Attending Physician. br1 23:20 Patient visited by Christos Storey MD. br1 23:30 Patient visited by Lexi Vargas LPN. slm 23:42 Patient visited by Hipolito Purcell. mas 23:47 Labs drawn. (by ED staff). Sent per order to lab. slm 23:47 Acetaminophen Level Sent. slm 23:47 Basic Metabolic Profile Sent. slm 23:47 Complete Blood Count Sent. slm 23:47 Ethyl Alcohol (ethanol) Sent. slm 23:47 Liver Profile Sent. slm 23:47 Salicylate Level Sent. slm 23:47 Thyroid Stimulating Hormone Sent. slm 23:48 Patient visited by Lexi Vargas LPN. slm 02 00:11 Patient visited by Lexi Vargas LPN. slm 00:31 Patient visited by Hipolito Purcell. mas 00:34 Attending Physician role handed off by Christos Storey MD mm11 00:34 Isaias Ralph DO is Attending Physician. mm11 00:50 Patient visited by Hipolito Purcell. mas 01:00 Patient visited by Hipolito Purcell. mas 01:16 Patient visited by Hipolito Purcell. mas 01:27 [facility] is Referral Physician. mm11 01:30 Patient visited by Hipolito Purcell. mas 01:35 Patient visited by Lexi Vargas LPN. slm 03:39 [facility] Payment Agreement was scanned into [employer] and attached to record. [facility] 11:15 T-Sheet-- Draft Copy was scanned into [employer] and attached to record. gb Order Results: Lab Order: Acetaminophen Level; SPEC'M 05/11/16 23:41 Test: ACETAMINOPHEN LEVEL; Value: < 2.0; Range: 10.0-30.0; Abnormal: Below low normal; Units: UG/ML; Status: F Lab Order: Basic Metabolic Profile; SPEC'M 05/11/16 23:41 Test: GLUCOSE, FASTING; Value: 111; Range: 70-105; Abnormal: Above high normal; Units: MG/DL; Status: F Test: BLOOD UREA NITROGEN; Value: 15; Range: 7-18; Units: MG/DL; Status: F Test: CREATININE FOR GFR; Value: 1.08; Range: 0.70-1.30; Units: MG/DL; Status: F Test: GLOMERULAR FILTRATION RATE; Value: > 60.0; Range: >60; Status: F Test: SODIUM LEVEL; Value: 140; Range: 136-145; Units: MEQ/L; Status: F Test: POTASSIUM SERUM; Value: 4.1; Range: 3.5-5.1; Units: MEQ/L; Status: F Test: CHLORIDE LEVEL; Value: 105; Range: 98-107; Units: MEQ/L; Status: F Test: CARBON DIOXIDE LEVEL; Value: 25; Range: 21-32; Units: MEQ/L; Status: F Test: ANION GAP; Value: 10; Range: 8-16; Units: MEQ/L; Status: F Test: CALCIUM LEVEL; Value: 9.3; Range: 8.5-10.1; Units: MG/DL; Status: F Test Note: ; Units are mL/min/1.73 m2 Chronic Kidney Disease Staging per NKF: Stage I & II GFR >=60 Normal to Mildly Decreased Stage III GFR 30-59 Moderately Decreased Stage IV GFR 15-29 Severely Decreased Stage V GFR <15 Very Little GFR Left ESRD GFR <15 on ELASTIC ASSEMBLER Lab Order: Complete Blood Count; SPEC'M 05/11/16 23:41 Test: WHITE BLOOD COUNT; Value: 9.4; Range: 4.0-10.0; Units: K/mm3; Status: F Test: RED BLOOD COUNT; Value: 5.65; Range: 4.30-6.10; Units: M/mm3; Status: F Test: HEMOGLOBIN; Value: 16.8; Range: 14.0-18.0; Units: g/dl; Status: F Test: HEMATOCRIT; Value: 49.2; Range: 42.0-52.0; Units: %; Status: F Test: MEAN CORPUSCULAR VOLUME; Value: 87.1; Range: 80.0-96.0; Units: fl; Status: F Test: MEAN CORPUSCULAR HEMOGLOBIN; Value: 29.7; Range: 27.0-33.0; Units: pg; Status: F Test: MEAN CORPUSCULAR HGB CONC; Value: 34.1; Range: 32.0-36.5; Units: g/dl; Status: F Test: RED CELL DISTRIBUTION WIDTH; Value: 12.6; Range: 11.5-14.5; Units: %; Status: F Test: PLATELET COUNT, AUTOMATED; Value: 260; Range: 150-450; Units: k/mm3; Status: F Lab Order: Drug Eval Toxicology ED Only; SPEC'M 05/11/16 23:50 Test: AMPHETAMINES LEVEL URINE; Value: POSITIVE; Range: NEGATIVE; Abnormal: Above high normal; Status: F Test: BARBITURATES URINE; Value: NEGATIVE; Range: NEGATIVE; Status: F Test: BENZODIAZEPINES URINE; Value: NEGATIVE; Range: NEGATIVE; Status: F Test: CANNABINOIDS URINE; Value: NEGATIVE; Range: NEGATIVE; Status: F Test: COCAINE METABOLITE URINE; Value: NEGATIVE; Range: NEGATIVE; Status: F Test: METHADONE URINE; Value: NEGATIVE; Range: NEGATIVE; Status: F Test: OPIATES URINE; Value: POSITIVE; Range: NEGATIVE; Abnormal: Above high normal; Status: F Test: TRICYCLIC ANTIDEPRESS URINE; Value: NEGATIVE; Range: NEGATIVE; Status: F Test Note: ; ALL PRESUMPTIVE POSITIVE FINDINGS ARE UNCONFIRMED NORMAL VALUES THRESHOLD IN NG/ML AMPHETAMINES 1000 METHAMPHETAMINES 1000 BARBITURATES 300 BENZODIAZEPINES 300 CANNABINOIDS (THC) 50 COCAINE METABOLITE 300 METHADONE 300 OPIATES 300 PHENCYCLIDINE 25 TRICYCLIC ANTIDEPRESSANTS 1000 RESULTS ARE FOR MEDICAL PURPOSES ONLY. ALL URINE SPECIMENS WILL BE SAVED FOR 3 DAYS. IF CONFIRMATION OF A PRESUMPTIVE POSTIVE SCREEN RESULT IS DESIRED, CALL CHEMISTRY ([phone]) AND REQUEST URINE TO BE SENT TO REFERENCE LAB. FOR A LIST OF CLOSELY RELATED COMPOUNDS PLEASE CALL THE LAB. Lab Order: Ethyl Alcohol (ethanol); SPEC'M 05/11/16 23:41 Test: ETHYL ALCOHOL (ETHANOL); Value: < 0.003; Range: 0.000-0.010; Units: %; Status: F Lab Order: Liver Profile; SPEC'M 05/11/16 23:41 Test: AST/SGOT; Value: 12; Range: 15-37; Abnormal: Below low normal; Units: U/L; Status: F Test: ALT/SGPT; Value: 12; Range: 12-78; Units: U/L; Status: F Test: ALKALINE PHOSPHATASE; Value: 83; Range: 45-117; Units: U/L; Status: F Test: BILIRUBIN,TOTAL; Value: 1.2; Range: 0.2-1.0; Abnormal: Above high normal; Units: MG/DL; Status: F Test: BILIRUBIN,DIRECT; Value: 0.3; Range: 0.0-0.2; Abnormal: Above high normal; Units: MG/DL; Status: F Test: TOTAL PROTEIN; Value: 8.6; Range: 6.4-8.2; Abnormal: Above high normal; Units: GM/DL; Status: F Test: ALBUMIN; Value: 5.0; Range: 3.2-5.2; Units: GM/DL; Status: F Test: ALBUMIN/GLOBULIN RATIO; Value: 1.39; Range: 1.00-1.93; Status: F Lab Order: Salicylate Level; SPEC'M 05/11/16 23:41 Test: SALICYLATE LEVEL; Value: < 1.7; Range: 5.0-30.0; Abnormal: Below low normal; Units: MG/DL; Status: F Lab Order: Thyroid Stimulating Hormone; SPEC'M 05/11/16 23:41 Test: THYROID STIMULATING HORMONE; Value: 1.580; Range: 0.358-3.740; Units: uIU/ML; Status: F Outcome: 01:27 Discharge ordered by Provider. mm11 01:34 Discharge Assessment: Patient awake, alert and oriented x 3. No cognitive and/or slm functional deficits noted. Patient verbalized understanding of disposition instructions. patient administered narcotics - no. The following High Risk Discharge criteria are identified: Yes, pt seen by and PSA . Discharged to home ambulatory. Condition: stable. Discharge instructions given to patient, Instructed on discharge instructions, follow up and referral plans. Demonstrated understanding of instructions, Pt was receptive of discharge instructions/ teaching. No special radiology studies were completed. 01:35 Patient left the ED. [facility] Signatures: Enrique Moya, PSA PSA cl Saige, Iraida, Reg Reg gb Kate, Ash, COURT USHER COURT USHER kb5 Isaias Ralph, DO DO mm11 Christos Storey MD MD br1 Hipolito Purcell Shannon, RN RN sls1 Eduardo Burgos, RN RN shob Lxei Vargas LPN LPN Alisha Lagunas Megan,RN RN mv5 Chart Complete YARIEL
--- NOTE | 2016-05-14 02:36 | EDDOCDS ---
Physician Documentation [facility] Name: Erik Fernandez Age: 26 yrs Sex: Male : 1990 Arrival Date: 05/11/2016 Time: 22:11 Bed [facility] Private MD: Disposition: 05/12/16 01:27 Discharged to Home/Self Care. Impression: Other stimulant abuse - methamphetamine. - Condition is Stable. - Discharge Instructions: Stimulant Use Disorder-Methamphetamines. - Medication Reconciliation, Local Pharmacy Hours form. - Follow up: Phillip Yang, Behavioral Health; When: Today; Reason: Continuance of care. - Problem is an acute exacerbation. - Symptoms have improved. Historical: - Allergies: no known allergies; - Home Meds: 1. none - PMHx: hernias; hydrocele; Hypertension; wisdom teeth; - PSHx: Hernia repair- Right inguinal; [place] Teeth; - Social history: Smoking status: Patient uses tobacco products, current every day smoker. Patient uses alcohol street drugs, No barriers to communication noted, The patient speaks fluent Italian. - Family history: Not pertinent. - : The pt / caregiver states he / she is not on anticoagulants. Home medication list is obtained from the patient. - Exposure Risk Screening:: None identified. Vital Signs: 05/11 22:26 BP 154 / 101; Pulse 124; Resp 20; Temp 98.4(T); Pulse Ox 98% on R/A; Height 5 ft. 10 slm in. (177.80 cm); Pain 5/10; 23:29 BP 148 / 101; Pulse 122; Resp 18; Pulse Ox 100% on R/A; slm 23:37 BP 140 / 90; slm 05/12 01:28 BP 132 / 90; Pulse 110; Resp 18; Temp 97.8(T); Pulse Ox 100% ; Pain 3/10; mas MDM: 05/11 23:21 Consult PFS/PSA/Director Underwriter Sales ordered. br1 23:21 PSA/PFS to call Nursing Lathe Operator, to enter patient data on [place] Safe Act if patient br1 involuntarily admitted or transferred for SI or HI ordered. 23:21 Confirm accurate psychiatric medication list and times of last dosage ordered. br1 23:21 Recheck Vital Signs, perform reassessment and enter into [employer] ordered. br1 23:22 Acetaminophen Level Ordered. EDMS 23:22 Basic Metabolic Profile Ordered. EDMS 23:22 Complete Blood Count Ordered. EDMS 23:22 Drug Eval Toxicology ED Only Ordered. EDMS 23:22 Ethyl Alcohol (ethanol) Ordered. EDMS 23:22 Liver Profile Ordered. EDMS 23:22 Salicylate Level Ordered. EDMS 23:22 Thyroid Stimulating Hormone Ordered. EDMS 23:32 Misc. Nursing Order ordered. br1 05/12 00:16 Consult PFS/PSA/Director Underwriter Sales complete. cl 00:16 PSA/PFS to call Nursing Lathe Operator, to enter patient data on [place] Safe Act if patient cl involuntarily admitted or transferred for SI or HI complete. 00:51 Acetaminophen Level Reviewed. mm11 00:51 Basic Metabolic Profile Reviewed. mm11 00:51 Drug Eval Toxicology ED Only Reviewed. mm11 00:51 Liver Profile Reviewed. mm11 00:51 Salicylate Level Reviewed. mm11 00:51 Complete Blood Count Reviewed. mm11 00:51 Ethyl Alcohol (ethanol) Reviewed. mm11 00:51 Thyroid Stimulating Hormone Reviewed. mm11 01:34 Financial registration complete. [facility] 03:39 [facility] Payment Agreement was scanned into [employer] and attached to record. [facility] 11:15 T-Sheet-- Draft Copy was scanned into [employer] and attached to record. gb Signatures: Dispatcher [employer] EDMS Enrique Moya, PSA PSA cl Iraida Moulton, Reg Reg gb Isaias Ralph, DO mm11 Christos Storey MD MD br1 Kristie Lujan RN RN sls1 Lexi Vargas LPN LPN Alisha Lagunas [facility] The chart was reviewed and I authenticate all verbal orders and agree with the evaluation and treatment provided.Attachments: 03:39 [facility] Payment Agreement [facility] 11:15 T-Sheet-- Draft Copy gb Chart Complete MTDD
--- NOTE | 2016-05-14 02:36 | EDDOCDS ---
Physician Documentation [facility] Name: Erik Fernandez Age: 26 yrs Sex: Male : 1990 Arrival Date: 05/11/2016 Time: 22:11 Bed [facility] Private MD: Disposition: 05/12/16 01:27 Discharged to Home/Self Care. Impression: Other stimulant abuse - methamphetamine. - Condition is Stable. - Discharge Instructions: Stimulant Use Disorder-Methamphetamines. - Medication Reconciliation, Local Pharmacy Hours form. - Follow up: Phillip Yang, Behavioral Health; When: Today; Reason: Continuance of care. - Problem is an acute exacerbation. - Symptoms have improved. Historical: - Allergies: no known allergies; - Home Meds: 1. none - PMHx: hernias; hydrocele; Hypertension; wisdom teeth; - PSHx: Hernia repair- Right inguinal; [place] Teeth; - Social history: Smoking status: Patient uses tobacco products, current every day smoker. Patient uses alcohol street drugs, No barriers to communication noted, The patient speaks fluent Uruguayan. - Family history: Not pertinent. - : The pt / caregiver states he / she is not on anticoagulants. Home medication list is obtained from the patient. - Exposure Risk Screening:: None identified. Vital Signs: 05/11 22:26 BP 154 / 101; Pulse 124; Resp 20; Temp 98.4(T); Pulse Ox 98% on R/A; Height 5 ft. 10 slm in. (177.80 cm); Pain 5/10; 23:29 BP 148 / 101; Pulse 122; Resp 18; Pulse Ox 100% on R/A; slm 23:37 BP 140 / 90; slm 05/12 01:28 BP 132 / 90; Pulse 110; Resp 18; Temp 97.8(T); Pulse Ox 100% ; Pain 3/10; mas MDM: 05/11 23:21 Consult PFS/PSA/Vat Cleaner ordered. br1 23:21 PSA/PFS to call Nursing Television Production Technician, to enter [place] data [place] Safe [place] if patient br1 involuntarily admitted or transferred for SI or HI ordered. 23:21 Confirm accurate psychiatric medication list and times of last dosage ordered. br1 23:21 Recheck Vital Signs, perform reassessment and enter into Med[employer] ordered. br1 23:22 Acetaminophen Level Ordered. EDMS 23:22 Basic Metabolic Profile Ordered. EDMS 23:22 Complete Blood Count Ordered. EDMS 23:22 Drug Eval Toxicology ED Only Ordered. EDMS 23:22 Ethyl Alcohol (ethanol) Ordered. EDMS 23:22 Liver Profile Ordered. EDMS 23:22 Salicylate Level Ordered. EDMS 23:22 Thyroid Stimulating Hormone Ordered. EDMS 23:32 Misc. Nursing Order ordered. br1 05/12 00:16 Consult PFS/PSA/Vat Cleaner complete. cl 00:16 PSA/PFS to call Nursing Television Production Technician, to enter patient data on [place] Safe Act if patient cl involuntarily admitted or transferred for SI or HI complete. 00:51 Acetaminophen Level Reviewed. mm11 00:51 Basic Metabolic Profile Reviewed. mm11 00:51 Drug Eval Toxicology ED Only Reviewed. mm11 00:51 Liver Profile Reviewed. mm11 00:51 Salicylate Level Reviewed. mm11 00:51 Complete Blood Count Reviewed. mm11 00:51 Ethyl Alcohol (ethanol) Reviewed. mm11 00:51 Thyroid Stimulating Hormone Reviewed. mm11 01:34 Financial registration complete. [facility] 03:39 [facility] Payment Agreement was scanned into [employer] and attached to record. [facility] 11:15 T-Sheet-- Draft Copy was scanned into [employer] and attached to record. gb Signatures: Dispatcher [employer] EDMS Enrique Moya, PSA PSA cl Iraida Moul[place], Reg Reg gb Isaias Ralph, DO mm11 Christos Storey MD MD br1 Kristie Lujan RN RN sls1 Lexi Vargas LPN LPN Alisha Lagunas [facility] The chart was reviewed and I authenticate all verbal orders and agree with the evaluation and treatment provided.Attachments: 03:39 [facility] Payment Agreement [facility] 11:15 T-Sheet-- Draft Copy gb Chart Complete MTDD
== END 2016-05-12 01:35 | disposition home or self-care (01) ==
LOC: M ED 22:11
DX: F10.10 Alcohol abuse, uncomplicated (principal); F15.10 Other stimulant abuse, uncomplicated; N43.3 Hydrocele, unspecified; I10 Essential (primary) hypertension; Z72.0 Tobacco use
CPT/HCPCS: 36415; 80048; 80076; 80306; 84443; 85027; 99284; G0480

== ENCOUNTER → 2016-11-25 | Outpatient (CLI) | payer MEDICAID, SELFPAY ==
[~2016-11-25] MED LIST changes: -HYDR-4274 PO; +HYDR50TA70 PO; +NORC1TAB4 PO; -NORC5TAB PO
== END ==
LOC: M OUTALCOH 07:39
PROVIDERS: ATTEND Psychiatry & Neurology Psychiatry
DX: Z03.89 Encounter for observation for other suspected diseases and conditions ruled out (principal)

== ENCOUNTER 2016-12-05 21:00 | Emergency (ER) | payer MEDICAID, SELFPAY ==
[~2016-12-05] VITALS: Ht 185.4 cm; Wt 72.7 kg
[2016-12-05 21:56] LABS: BASO % 0.3 % (0.0-1.0); EOS # 0.1 K/mm3 (0.0-0.50); EOS % 2.1 % (0.0-3.0); LARGE UNSTAINED CELL # 0.2 K/mm3 (0.0-0.4); LARGE UNSTAINED CELL % 2.8 % (0.0-4.0); LYMPH # 2.7 K/mm3 (1.5-6.5); LYMPH % 45.5 % (24.0-44.0); MEAN CORPUSCULAR HGB CONC 34.7 g/dl (32.0-36.5); MEAN CORPUSCULAR VOLUME 86.3 fl (80.0-96.0); MONO # 0.3 K/mm3 (0.0-0.8); MONO % 4.5 % (0.0-5.0); NEUTROPHILS # 2.7 K/mm3 (1.8-7.7); NEUTROPHILS % 44.9 % (36.0-66.0); PLATELET COUNT, AUTOMATED 203 k/mm3 (150-450); RED CELL DISTRIBUTION WIDTH 12.1 % (11.5-14.5); WHITE BLOOD COUNT 5.9 K/mm3 (4.0-10.0)
[2016-12-05 22:20] LABS: ALBUMIN 4.6 GM/DL (3.2-5.2); ALBUMIN/GLOBULIN RATIO 1.44 (1.00-1.93); ALKALINE PHOSPHATASE 81 U/L (45-117); ALT/SGPT 26 U/L (12-78); ANION GAP 6 MEQ/L (8-16); AST/SGOT 19 U/L (15-37); BILIRUBIN,TOTAL 0.4 MG/DL (0.2-1.0); BLOOD UREA NITROGEN 14 MG/DL (7-18); CALCIUM LEVEL 9.3 MG/DL (8.5-10.1); CARBON DIOXIDE LEVEL 31 MEQ/L (21-32); CHLORIDE LEVEL 107 MEQ/L (98-107); CREATININE FOR GFR 0.96 MG/DL (0.70-1.30); GLOMERULAR FILTRATION RATE > 60.0 (>60); GLUCOSE, FASTING 83 MG/DL (70-105); POTASSIUM SERUM 3.7 MEQ/L (3.5-5.1); SODIUM LEVEL 144 MEQ/L (136-145); TOTAL PROTEIN 7.8 GM/DL (6.4-8.2)
[2016-12-05] MEDS ORDERED: ISOVUE-370 76% 100ML VIAL (Q9967) As Ordered ONE (22:55)
--- NOTE | 2016-12-05 23:20 | REPUSA ---
CT angiogram of the chest Clinical statement: Elevated D-dimer. Technique: Multiple axial CT images were obtained from the thoracic inlet through the upper abdomen a fter a bolus administration of nonionic intravenous contrast. Coronal and sagittal reconstructions we re also obtained. No comparison is available. Findings: The pulmonary arteries are well-opacified with contrast, with no intraluminal filling defec ts to suggest embolism. The thoracic aorta is unremarkable. Thyroid gland is within normal limits. Th ere is no thoracic lymphadenopathy. There are no pericardial or pleural effusions. The lungs are heidi r. Limited imaging of the upper abdomen is unremarkable. There are no suspicious osseous lesions. Impression: Unremarkable CT examination of the chest. No evidence of pulmonary embolism.
[2016-12-05 23:48] VITALS: BP 139/80
== END 2016-12-05 23:49 | disposition home or self-care (01) ==
LOC: M ED 21:00
DX: M25.519 Pain in unspecified shoulder (principal)
CPT/HCPCS: 71275; 80053; 85025; 85379; 99283; Q9967

== ENCOUNTER 2016-12-10 15:08 | Outpatient (RCR) | payer MEDICAID, SELFPAY | END 2016-12-19 | LOC: M OUTALCOH 15:08 | PROVIDERS: ATTEND Psychiatry & Neurology Psychiatry | DX: Z03.89 Encounter for observation for other suspected diseases and conditions ruled out (principal) ==